=== PATIENT | female | born 1965 | race Caucasian/White ===

== ENCOUNTER 2018-05-30 13:45 | Observation (INO) | payer OTHER ==
--- NOTE | 2018-05-30 14:23 | PDOC ---
History of Present Illness <Doris Griffin - Last Filed: 05/30/18 15:43> <Alli Hidalgo - Last Filed: 05/30/18 16:10> - History of Present Illness Initial Comments: 05/30/18 14:23 53 year old woman who presents with L sided facial numbness and mild droop that started this AM. The patient stated that she has had elevated blood pressure with a systolic ranging from 160-190 for the past 2 weeks found at the dentist. She has not followed up with PCP for her blood pressure. She has never had this L sided facial numbness in the past. Her notes some silght slurring of speech. She denies any chest pain, ringing in the ears, headache, changes in vision, weakness in the face, arms or legs and nausea or vomiting. She has no other complaints at bedside. PMHX: none PSHX: none Tob: none Etoh: none Rec drugs: none Meds: none Allergies: NKDA 06/05/18 12:04 <Sudha Brooks - Last Filed: 06/05/18 12:07> - General Chief Complaint: CVA/TIA Stated Complaint: LEFT FACIAL DROOP Time Seen by Provider: 05/30/18 13:51 Past History <Doris Griffin - Last Filed: 05/30/18 15:43> <Alli Hidalgo - Last Filed: 05/30/18 16:10> - Past Medical History COPD: No - Suicide/Smoking/Psychosocial Hx Smoking History: Never smoked Hx Alcohol Use: No Drug/Substance Use Hx: No <Sudha Brooks - Last Filed: 06/05/18 12:07> - Past Medical History Allergies/Adverse Reactions: Allergies Allergy/AdvReac Type Severity Reaction Status Date / Time No Known Allergies Allergy Verified 05/30/18 13:53 Home Medications: Ambulatory Orders Acetaminophen [Tylenol .Regular Strength -] 650 mg PO Q4H PRN tablet 06/01/18 Aspirin Coated [Ecotrin -] 81 mg PO DAILY #30 tablet.ec 06/01/18 Atorvastatin Ca [Lipitor] 40 mg PO HS #30 tablet 06/01/18 Lisinopril [Prinivil] 2.5 mg PO DAILY #30 tablet 06/01/18 Review of Systems - Review of Systems Able to Perform ROS?: Yes Is the patient limited Azeri proficient: No Constitutional: No: Chills, Diaphoresis, Fever HEENTM: No: Blurred Vision, Tinnitus, Difficulty Swallowing Respiratory: No: Cough, Shortness of Breath Cardiac (ROS): No: Chest Pain, Palpitations, Chest Tightness ABD/GI: No: Constipated, Diarrhea, Nausea, Vomiting Musculoskeletal: No: Muscle Pain, Muscle Weakness Neurological: Yes: Unsteady Gait (chronic difficulty with balance). No: Headache, Numbness, Tingling, Weakness <Sudha Brooks - Last Filed: 06/05/18 12:07> *Physical Exam - Vital Signs Last Vital Signs Temp Pulse Resp BP Pulse Ox 99.0 F 76 15 155/96 100 05/30/18 13:49 05/30/18 15:35 05/30/18 15:35 05/30/18 15:35 05/30/18 15:35 <Doris Griffin - Last Filed: 05/30/18 15:43> - Vital Signs Last Vital Signs Temp Pulse Resp BP Pulse Ox 99.0 F 76 15 155/96 100 05/30/18 13:49 05/30/18 15:35 05/30/18 15:35 05/30/18 15:35 05/30/18 15:35 <Alli Hidalgo - Last Filed: 05/30/18 16:10> - Vital Signs Last Vital Signs Temp Pulse Resp BP Pulse Ox 99.0 F 84 16 197/121 100 05/30/18 13:49 05/30/18 13:49 05/30/18 13:49 05/30/18 13:49 05/30/18 13:49 - Physical Exam Comments: 06/05/18 12:01 GENERAL: Awake, alert, and fully oriented, in no acute distress HEAD: No signs of trauma, normocephalic, atraumatic EYES: PERRLA, EOMI, sclera anicteric, conjunctiva clear ENT: Auricles normal inspection, hearing grossly normal, nares patent, oropharynx clear without exudates. Moist mucosa NECK: Normal ROM, supple, no lymphadenopathy or masses LUNGS: No distress, speaks full sentences, clear to auscultation bilaterally HEART: Regular rate and rhythm, normal S1 and S2, no murmurs, rubs or gallops, peripheral pulses normal and equal bilaterally. ABDOMEN: Soft, nontender, normoactive bowel sounds. No guarding, no rebound. No masses EXTREMITIES : Normal inspection, Normal range of motion, no edema. No clubbing or cyanosis. NEUROLOGICAL: Cranial nerves II through XII grossly intact. + decreased L nasolabial fold crease, + able to raise both eyebrows with bilat forehead wrinkling, Normal speech, normal gait, no focal sensorimotor deficits SKIN: Warm, Dry, normal turgor, no rashes or lesions noted 06/05/18 12:03 <Sudha Brooks - Last Filed: 06/05/18 12:07> NIH Stroke Scale - Initial Evaluation Level of consciousness: Alert Ask patient the month and their age: Answers both correctly Ask patient to open & close eyes; make fist and let go: Obeys both correctly Best gaze (horizontal eye movement): Normal Visual field testing: No visual field loss Facial paresis (Show teeth/raise eyebrows/close eyes tight): Minor paralysis ( flattened nasolabial fold, asymmetry on smiling) (L face) Motor Function: Left Arm: Normal Motor Function: Right Arm: Normal (extends arm 90 (or 45) degrees for 10 seconds without drift Motor Function: Left Leg: Normal (extends leg 30 degrees for 5 seconds without drift) Motor Function: Right Leg: Normal (extends leg 30 degrees for 5 seconds without drift) Limb Ataxia: No ataxia (No NEW ataxia, patient has baseline slight difficulty with balance) Best language (Describe picture, name items, read sentences): No Aphasia <Sudha Brooks - Last Filed: 06/05/18 12:07> tPA Exclusion checklist 3-4.5h - Ineligibility reason(s) Reasons No tPA given: Outside of window - delayed arrival <Sudha Brooks Last Filed: 06/05/18 12:07> TIA Risk Factors - ABCD Score Age: Age < 60 Blood Pressure: SBP =/> 140 Clinical Features of TIA: Uni wk w/wo speech impair Duration: TIA duration = or > 60min Diabetes: No Total ABCD2 Score (0-7):: 5 <Sudha Brooks Last Filed: 06/05/18 12:07> Critical Care Time/MDM Note - Medical Decision Making Note: Paged Dr. Dharmesh (Neuro) for callback. 05/30/18 15:43 <Doris Griffin - Last Filed: 05/30/18 15:43> - Medical Decision Making Note: 06/05/18 12:05 53 year old woman who presents with L sided facial numbness that started this AM in setting of 2 weeks of known hypertension SBP 160-190. Patient symptoms and history are concerning for CVA vs TIA vs [place] palsy, however given physical exam most likely etiology is TIA vs CVA. Plan to evaluate with prompt imaging. CT head: unremarkable Plan to admit for f/u MRI <Sudha Brooks - Last Filed: 06/05/18 12:07> Discharge Disposition <Doris Griffin - Last Filed: 05/30/18 15:43> - Discharge Dispostion Decision to Admit order: Yes <Alli Hidalgo - Last Filed: 05/30/18 16:10> <Sudha Brooks - Last Filed: 06/05/18 12:07> - Diagnosis TIA (transient ischemic attack) - Discharge Dispostion Disposition: HOME Condition at time of disposition: Improved
[2018-05-30 15:00] LABS: URINE APPEARANCE Clear; URINE BILIRUBIN Negative (NEGATIVE); URINE COLOR Yellow; URINE GLUCOSE (UA) Negative (NEGATIVE); URINE KETONE Negative (NEGATIVE); URINE LEUK ESTERASE Negative (NEGATIVE); URINE NITRITE Negative (NEGATIVE); URINE PROTEIN Negative (NEGATIVE); URINE UROBILINOGEN 0.2 (0.2-1.0)
[2018-05-30 15:05] LABS: BASO % 0.7 % (0-2.0); EOS % 0.7 % (0-4.5); HEMATOCRIT 35.8 % (32.4-45.2); HEMOGLOBIN 11.6 GM/dl (10.7-15.3); LYMPH % 12.7 % (8-40); MCHC 32.4 g/dl (32.0-36.0); MEAN PLT VOLUME 11.2 fl (7.5-11.1); MONO % 5.3 % (3.8-10.2); NEUT % 80.6 % (42.8-82.8); PLATELET COUNT 268 K/MM3 (134-434); RBC 5.04 M/mm3 (3.60-5.2); RDW 14.9 % (11.6-15.6); WHITE BLOOD COUNT 7.8 K/mm3 (4.0-10.8)
[2018-05-30 15:21] LABS: ACTIVATED PTT 32.2 SECONDS (25.2-36.5); INR 1.06 (0.82-1.09); PROTHROMBIN TIME (PATIENT) 11.9 SEC (10.2-13.0)
[2018-05-30 15:26] LABS: ALBUMIN 4.3 g/dl (3.5-5.0); ALK PHOS 83 U/L (32-92); ANION GAP 5 (8-16); BILIRUBIN,TOTAL 0.7 mg/dl (0.2-1.0); BLOOD UREA NITROGEN 13 mg/dl (7-18); CALCIUM 9.3 mg/dl (8.4-10.2); CHLORIDE 102 mmol/L (98-107); CHOLESTEROL 180 mg/dl; CO2 29 mmol/L (22-28); CREATININE 0.8 mg/dl (0.6-1.3); GLUCOSE,RANDOM 90 mg/dl (74-106); HDL CHOLESTEROL 62 mg/dl (29-89); POTASSIUM 3.9 mmol/L (3.5-5.1); SGOT/AST 20 U/L (10-42); SGPT/ALT 14 U/L (10-40); SODIUM 136 mmol/L (136-145); TOT PROT 7.1 g/dl (6.4-8.3); TRIGLYCERIDES 124 mg/dl (35-160)
[2018-05-30 15:34] LABS: ADD RBC MORPHOLOGY YES
--- NOTE | 2018-05-30 15:48 | PDOC ---
Attending Attestation - Resident Resident Name: CeciliaSudha - ED Attending Attestation I have performed the following: I have examined & evaluated the patient, The case was reviewed & discussed with the resident, I agree w/resident's findings & plan, Exceptions are as noted - HPI HPI: 05/30/18 15:45 "The patient is a 53 year old female, who denies any significant past medical history, who presents to the emergency department with left facial numbness and droop since 4 am this morning. She also notes slight headache upon awakening but denies any current pain. She states that 1 month ago she was supposed to get a tooth extracted but was unable to because her blood pressure was too high. She has been monitoring her blood pressure since and notes that its around 160-180 systolic /110-180 diastolic at baseline. Pt states that she woke up around 9am and noticed her facial droop shortly after. Her reports that she was slurring her speech at this time as well, though this has resolved. Pt denies any weakness/numbness in any extremity but reports difficulty balancing earlier today. At time of evaluation, pt reports that all of her symptoms have resolved. She denies recent fevers, chills, or dizziness. She denies recent nausea, vomit , diarrhea or constipation. She denies recent dysuria, frequency, urgency or hematuria. She denies recent chest pain or shortness of breath. Allergies: NKA Past surgical history: None reported. " - Physicial Exam PE: 05/30/18 15:46 "GENERAL: Awake, alert, and fully oriented, in no acute distress. HEAD: No signs of trauma EYES: PERRLA, EOMI, sclera anicteric, conjunctiva clear ENT: Auricles normal inspection, hearing grossly normal, nares patent, oropharynx clear without exudates. Moist mucosa NECK: Nontender, no stepoffs, Normal ROM, supple, no lymphadenopathy, JVD, or masses LUNGS: Breath sounds equal, clear to auscultation bilaterally. No wheezes, and no crackles HEART: Regular rate and rhythm, normal S1 and S2, no murmurs, rubs or gallops ABDOMEN: Soft, nontender, normoactive bowel sounds. No guarding, no rebound. No masses EXTREMITIES: Normal range of motion, no edema. No clubbing or cyanosis. No cords, erythema, or tenderness NEUROLOGICAL: Cranial nerves II through XII intact. 5/5 strength and sensation in all extremities, Normal speech, normal gait, normal cerebellar function SKIN: Warm, Dry, normal turgor, no rashes or lesions noted. " - Critical Care Time Total Critical Care Time: 45 Critical Care Statement: The care of this patient involved high complexity decision making to prevent further life threatening deterioration of the patient 's condition and/or to evaluate & treat vital organ system(s) failure or risk of failure. - Medical Decision Making 05/30/18 15:47 53 F with transient L facial droop, L facial numbness, slurred speech, and difficulty balancing. Concerning for TIA. Pt now has NIHSS 0. Vitals in triage notable for hypertension. - Labs - CT head - Neuro consult 05/30/18 15:59 CT head normal Labs unremarkable Spoke with Dr. Barroso, who recommends admission for MRI. NIH Stroke Scale - Last Known Well Date/Time & Onset Date Last Known Well: 05/29/18 Time Last Known Well: 22:00 - Initial Evaluation Level of consciousness: Alert Ask patient the month and their age: Answers both correctly Ask patient to open & close eyes; make fist and let go: Obeys both correctly Best gaze (horizontal eye movement): Normal Visual field testing: No visual field loss Facial paresis (Show teeth/raise eyebrows/close eyes tight): Normal symmetrical movement Motor Function: Left Arm: Normal Motor Function: Right Arm: Normal (extends arm 90 (or 45) degrees for 10 seconds without drift Motor Function: Left Leg: Normal (extends leg 30 degrees for 5 seconds without drift) Motor Function: Right Leg: Normal (extends leg 30 degrees for 5 seconds without drift) Limb Ataxia: No ataxia Sensory(Use pinprick test arms,legs,trunk,face/side to side): Normal Best language (Describe picture, name items, read sentences): No Aphasia Dysarthria (read several words): Normal articulation Extinction and Inattention: No abnormality - Total Score NIH Stroke Scale Score: 0
[2018-05-30 15:56] LABS: OVALOCYTE 1+; TEAR DROP CELLS OCCASIONAL
[2018-05-30] MEDS ORDERED: ATORVASTATIN CA 10 MG TABLET (FP) PO ONE (16:30)
[2018-05-30] MEDS: ASPIRIN COATED 81 MG TABLET.EC PO SCH (17:15)
[2018-05-30] MEDS ORDERED: ASPIRIN 81 MG CHEWABLE TABLETS ONE (17:16)
[2018-05-30] MEDS ORDERED: ATORVASTATIN CA 20 MG TABLET (FP) ONE (17:16)
[2018-05-30 20:15] VITALS: BMI 17.2
[2018-05-30] MEDS ORDERED: ATORVASTATIN CA 40 MG TABLET (FP) PO SCH (22:00)
[2018-05-31] MEDS: SODIUM CHLORIDE 1,000 ML IV SCH ×2 (00:09→14:45)
[2018-05-31] MEDS ORDERED: LISINOPRIL 5 MG TABLET (FP) PO ONE ×2 (00:28→13:17)
--- NOTE | 2018-05-31 00:30 | HP ---
CHIEF COMPLAINT: headache, facial numbness, slurred speech PCP: none HISTORY OF PRESENT ILLNESS: This is a 53 year old female with PMH of migraines who presented to the ED with a headache upon awakening, slurred speech and left facial numbness. Facial numbness and headache have resolved. Pt reports she has been having intermittent "different" speech for months. She believes it may be related to her BP. Pt reports that she was never diagnosed with HTN but a month ago her tooth extraction was cancelled due to her BP. She did not f/u with a doctor because she was going away on vacation. ER course was notable for: (1) BP elevated 197/121 upon arrival (2) CT head unremarkable Recent Travel: [place] PAST MEDICAL HISTORY: migraines PAST SURGICAL HISTORY: none Social History: Smoking: pt denies Alcohol: pt denies Drugs: pt denies Family History: mother alive with BP father age 58, emphysema brother age 26, unknown COD brother alive and well 3 children alive and well Allergies No Known Allergies Allergy (Verified 05/30/18 13:53) HOME MEDICATIONS: 3 Medication Instructions Recorded NK [No Known Home Medication] 05/30/18 REVIEW OF SYSTEMS CONSTITUTIONAL: Absent: fever, chills, diaphoresis, generalized weakness, malaise, loss of appetite, weight change HEENT: Absent: rhinorrhea, nasal congestion, throat pain, throat swelling, difficulty swallowing, mouth swelling, ear pain, eye pain, visual changes CARDIOVASCULAR: Absent: chest pain, syncope, palpitations, irregular heart rate, lightheadedness , peripheral edema RESPIRATORY: Absent: cough, shortness of breath, dyspnea with exertion, orthopnea, wheezing, stridor, hemoptysis GASTROINTESTINAL: Absent: abdominal pain, abdominal distension, nausea, vomiting, diarrhea, constipation, melena, hematochezia GENITOURINARY: Absent: dysuria, frequency, urgency, hesitancy, hematuria, flank pain, genital pain MUSCULOSKELETAL: Absent: myalgia, arthralgia, joint swelling, back pain, neck pain SKIN: Absent: rash, itching, pallor HEMATOLOGIC/IMMUNOLOGIC: Absent: easy bleeding, easy bruising, lymphadenopathy, frequent infections ENDOCRINE: Absent: unexplained weight gain, unexplained weight loss, heat intolerance, cold intolerance NEUROLOGIC: Present: headache, focal weakness or paresthesias Absent: dizziness, unsteady gait, seizure, mental status changes, bladder or bowel incontinence PSYCHIATRIC: Absent: anxiety, depression, suicidal or homicidal ideation, hallucinations. PHYSICAL EXAMINATION Vital Signs - 24 hr 3 05/30/18 05/30/18 05/30/18 13:49 14:45 15:20 Temperature 99.0 F Pulse Rate 84 Pulse Rate [ 70 71 Apical] Respiratory 16 15 15 Rate Blood Pressure 197/121 Blood Pressure 172/102 148/97 [Right Arm] O2 Sat by Pulse 100 100 100 Oximetry (%) 05/30/18 05/30/18 05/30/18 15:35 16:11 16:15 Temperature 98.8 F Pulse Rate 72 Pulse Rate [ 76 76 Apical] Respiratory 15 20 16 Rate Blood Pressure 185/91 Blood Pressure 155/96 135/90 [Right Arm] O2 Sat by Pulse 100 100 100 Oximetry (%) 05/30/18 05/30/18 05/30/18 19:35 22:11 22:18 Temperature 98.6 F Pulse Rate 79 Pulse Rate [ Apical] Respiratory 16 19 Rate Blood Pressure 161/88 Blood Pressure [Right Arm] O2 Sat by Pulse 100 98 Oximetry (%) GENERAL: Awake, alert, and fully oriented, in no acute distress. HEAD: Normal with no signs of trauma. EYES: Pupils equal, round and reactive to light, extraocular movements intact, sclera anicteric, conjunctiva clear. No lid lag. EARS, NOSE, THROAT: Ears normal, nares patent, oropharynx clear without exudates. Moist mucous membranes. NECK: Normal range of motion, supple without lymphadenopathy, JVD, or masses. LUNGS: Breath sounds equal, clear to auscultation bilaterally. No wheezes, and no crackles. No accessory muscle use. HEART: Regular rate and rhythm, normal S1 and S2 without murmur, rub or gallop. ABDOMEN: Soft, nontender, not distended, normoactive bowel sounds, no guarding, no rebound, no masses. No hepatomegaly or splenomegaly. MUSCULOSKELETAL: Normal range of motion at all joints. No bony deformities or tenderness. No CVA tenderness. UPPER EXTREMITIES: 2+ pulses, warm, well-perfused. No cyanosis. No clubbing. No peripheral edema. LOWER EXTREMITIES: 2+ pulses, warm, well-perfused. No calf tenderness. No peripheral edema. NEUROLOGICAL: Cranial nerves II-XII intact. Normal speech. Normal gait. minor dysarthria noted, no other symptoms, no ataxia PSYCHIATRIC: Cooperative. Good eye contact. Appropriate mood and affect. SKIN: Warm, dry, normal turgor, no rashes or lesions noted, normal capillary refill. Laboratory Results - last 24 hr 3 05/30/18 05/30/18 05/30/18 14:20 14:20 14:20 WBC 7.8 RBC 5.04 Hgb 11.6 Hct 35.8 MCV 71.0 L MCH 23.0 L MCHC 32.4 RDW 14.9 Plt Count 268 MPV 11.2 H Absolute Neuts (auto) 6.2 Neutrophils % 80.6 Lymphocytes % 12.7 Monocytes % 5.3 Eosinophils % 0.7 Basophils % 0.7 Hypochromia 1+ Microcytosis 1+ Tear Drop Cells Occasional Ovalocytes 1+ PT with INR 11.9 INR 1.06 PTT (Actin FS) 32.2 Sodium 136 Potassium 3.9 Chloride 102 Carbon Dioxide 29 H Anion Gap 5 L BUN 13 Creatinine 0.8 Creat Clearance w eGFR > 60 Random Glucose 90 Calcium 9.3 Total Bilirubin 0.7 AST 20 ALT 14 Alkaline Phosphatase 83 Creatine Kinase 83 Troponin I < 0.03 Total Protein 7.1 Albumin 4.3 Triglycerides 124 Cholesterol 180 HDL Cholesterol 62 Urine Color Urine Appearance Urine pH Ur Specific [place] Urine Protein Urine Glucose (UA) Urine Ketones Urine Blood Urine Nitrite Urine Bilirubin Urine Urobilinogen Ur Leukocyte Esterase Blood Type A POSITIVE Antibody Screen Negative 3 Urine Color Yellow 05/30/18 14:40 Urine Appearance Clear 05/30/18 14:40 Urine pH 6.0 (4.5-8) 05/30/18 14:40 Ur Specific [place] 1.015 (1.005-1.025) 05/30/18 14:40 Urine Protein Negative (NEGATIVE) 05/30/18 14:40 Urine Glucose (UA) Negative (NEGATIVE) 05/30/18 14:40 Urine Ketones Negative (NEGATIVE) 05/30/18 14:40 Urine Blood Negative (NEGATIVE) 05/30/18 14:40 Urine Nitrite Negative (NEGATIVE) 05/30/18 14:40 Urine Bilirubin Negative (NEGATIVE) 05/30/18 14:40 Urine Urobilinogen 0.2 05/30/18 14:40 Ur Leukocyte Esterase Negative (NEGATIVE) 05/30/18 14:40 ECG normal sinus rhythm vent rate 76, QTC 432 possible left atrial enlargement, no acute ST/T wave changes Radiology Reports CT head IMPRESSION: Normal CT scan of the head with no evidence of acute intracranial pathology. Reported By: Jose Alberto Kirby MD 05/30/18 3872 ASSESSMENT/PLAN: 53yF with PMH migraines presented to the ED with left facial weakness, numbness , headache, slurred speech since awakening. Hypertensive urgency - BP initially came down on without medications, now creeping back up - will initiate antiHTN meds, start lisinopril 2.5mg now, titrate up as needed TIA - MRI ordered - Neurology consult appreciated - Lipid panel ordered - cardiac monitoring DVT PPX - heparin deferred, anticipated LOS less than 48h FEN - tolerating po fluids - BMP in am - low sodium diet as tolerated Dispo: pt requires further observation Visit type - Emergency Visit Emergency Visit: Yes ED Registration Date: 05/30/18 Care time: The patient presented to the Emergency Department on the above date and was hospitalized for further evaluation of their emergent condition. - New Patient This patient is new to me today: Yes Date on this admission: 05/30/18 - Critical Care Critical Care patient: No Hospitalist Screening - Colonoscopy Questionnaire Colonoscopy Questionnaire: Colonoscopy Questionnaire - Patient: 50 - 75 years old and never had a screening colonoscopy: Yes History of colon or rectal polyps, or CA: No History of IBD, Crohn's disease or UC: No History of abdominal radiation therapy as a child: No - Relative: 1 with colon or rectal CA, or polyps at age 60 or younger: No Colon or rectal CA diagnosed at age 45 or younger: No Multiple relatives with colon or rectal CA: No - Outcome: Screening Result: Positive Screen
--- NOTE | 2018-05-31 07:58 | PN ---
Physical Exam: SUBJECTIVE: Patient seen and examined, reports headache, left side of head denies any blurred vision nausea or vomiting OBJECTIVE: patient is a 53-year-old female with a past medical history of migraines. patient was admitted from the emergency department to telemetry observation for hypertensive urgency and rule out TIA Vital Signs Period Temp Pulse Resp BP Sys/[place] Pulse Ox Last 24 Hr 98.0 F-99.0 F 64-84 15-20 135-197/83-121 98-100 GENERAL: The patient is awake, alert, and fully oriented, in no acute distress. HEAD: Normal with no signs of trauma. EYES: PERRL, extraocular movements intact, sclera anicteric, conjunctiva clear. No ptosis. ENT: Ears normal, nares patent, oropharynx clear without exudates, moist mucous membranes. NECK: Trachea midline, full range of motion, supple. LUNGS: Breath sounds equal, clear to auscultation bilaterally, no wheezes, no crackles, no accessory muscle use. HEART: Regular rate and rhythm, S1, S2 without murmur, rub or gallop. ABDOMEN: Soft, nontender, nondistended, normoactive bowel sounds, no guarding, no rebound, no hepatosplenomegaly, no masses. EXTREMITIES: 2+ pulses, warm, well-perfused, no edema. NEUROLOGICAL: Cranial nerves II through XII grossly intact. dysarthria, ataxic gait noted observed. PSYCH: Normal mood, normal affect. SKIN: Warm, dry, normal turgor, no rashes or lesions noted Laboratory Results - last 24 hr 05/30/18 05/30/18 05/30/18 14:20 14:20 14:20 WBC 7.8 RBC 5.04 Hgb 11.6 Hct 35.8 MCV 71.0 L MCH 23.0 L MCHC 32.4 RDW 14.9 Plt Count 268 MPV 11.2 H Absolute Neuts (auto) 6.2 Neutrophils % 80.6 Lymphocytes % 12.7 Monocytes % 5.3 Eosinophils % 0.7 Basophils % 0.7 Hypochromia 1+ Microcytosis 1+ Tear Drop Cells Occasional Ovalocytes 1+ PT with INR 11.9 INR 1.06 PTT (Actin FS) 32.2 Sodium 136 Potassium 3.9 Chloride 102 Carbon Dioxide 29 H Anion Gap 5 L BUN 13 Creatinine 0.8 Creat Clearance w eGFR > 60 Random Glucose 90 Calcium 9.3 Total Bilirubin 0.7 AST 20 ALT 14 Alkaline Phosphatase 83 Creatine Kinase 83 Troponin I Total Protein 7.1 Albumin 4.3 Triglycerides 124 Cholesterol 180 HDL Cholesterol 62 Urine Color Urine Appearance Urine pH Ur Specific [place] Urine Protein Urine Glucose (UA) Urine Ketones Urine Blood Urine Nitrite Urine Bilirubin Urine Urobilinogen Ur Leukocyte Esterase Blood Type Antibody Screen 05/30/18 05/30/18 05/30/18 14:20 14:20 14:20 WBC RBC Hgb Hct MCV MCH MCHC RDW Plt Count MPV Absolute Neuts (auto) Neutrophils % Lymphocytes % Monocytes % Eosinophils % Basophils % Hypochromia Microcytosis Tear Drop Cells Ovalocytes PT with INR INR PTT (Actin FS) Sodium Potassium Chloride Carbon Dioxide Anion Gap BUN Creatinine Creat Clearance w eGFR Random Glucose Calcium Total Bilirubin AST ALT Alkaline Phosphatase Creatine Kinase Troponin I < 0.03 Total Protein Albumin Triglycerides Cholesterol HDL Cholesterol Urine Color Urine Appearance Urine pH Ur Specific [place] Urine Protein Urine Glucose (UA) Urine Ketones Urine Blood Urine Nitrite Urine Bilirubin Urine Urobilinogen Ur Leukocyte Esterase Blood Type A POSITIVE A POSITIVE Antibody Screen Negative 05/30/18 14:40 WBC RBC Hgb Hct MCV MCH MCHC RDW Plt Count MPV Absolute Neuts (auto) Neutrophils % Lymphocytes % Monocytes % Eosinophils % Basophils % Hypochromia Microcytosis Tear Drop Cells Ovalocytes PT with INR INR PTT (Actin FS) Sodium Potassium Chloride Carbon Dioxide Anion Gap BUN Creatinine Creat Clearance w eGFR Random Glucose Calcium Total Bilirubin AST ALT Alkaline Phosphatase Creatine Kinase Troponin I Total Protein Albumin Triglycerides Cholesterol HDL Cholesterol Urine Color Yellow Urine Appearance Clear Urine pH 6.0 Ur Specific [place] 1.015 Urine Protein Negative Urine Glucose (UA) Negative Urine Ketones Negative Urine Blood Negative Urine Nitrite Negative Urine Bilirubin Negative Urine Urobilinogen 0.2 Ur Leukocyte Esterase Negative Blood Type Antibody Screen Active Medications Generic Name Dose Route Start Last Admin Trade Name Freq PRN Reason Stop Dose Admin Aspirin 81 mg 05/30/18 16:30 05/30/18 17:15 Ecotrin - PO 81 mg DAILY CEDRIC Administration Sodium Chloride 1,000 mls @ 42 mls/hr 05/30/18 14:15 05/31/18 00:09 Normal Saline - IV Not Given ASDIR CEDRIC ECG normal sinus rhythm vent rate 76, QTC 432 possible left atrial enlargement, no acute ST/T wave changes Radiology Reports CT head IMPRESSION: Normal CT scan of the head with no evidence of acute intracranial pathology. Reported By: Jose Alberto Kirby MD 05/30/18 8208 ASSESSMENT/PLAN: 1) cardiovascular Hypertensive urgency - Continue lisinopril 2.5 mg daily, strict monitoring of blood pressure, every 4 hours - pending echocardiogram 2) Neuro R/o TIA - pending MRI/MRA of head and C-spine - Continue aspirin and Lipitor daily - Neurology Dr. [place] consulted and following DVT PPX - heparin deferred, anticipated LOS less than 48h FEN - tolerating po fluids - BMP in am - low sodium diet as tolerated Dispo: pt requires further observation ASSESSMENT/PLAN: Visit type - Emergency Visit Emergency Visit: Yes ED Registration Date: 05/30/18 Care time: The patient presented to the Emergency Department on the above date and was hospitalized for further evaluation of their emergent condition. - New Patient This patient is new to me today: No - Critical Care Critical Care patient: No - Discharge Referral Referred to [facility] No
[2018-05-31 08:36] LABS: BASO % 1.3 % (0-2.0); EOS % 2.5 % (0-4.5); HEMATOCRIT 34.2 % (32.4-45.2); HEMOGLOBIN 11.1 GM/dl (10.7-15.3); LYMPH % 22.7 % (8-40); MCH 23.2 pg (25.7-33.7); MCHC 32.3 g/dl (32.0-36.0); MEAN CELL VOLUME 71.7 fl (80-96); MEAN PLT VOLUME 10.9 fl (7.5-11.1); MONO % 7.3 % (3.8-10.2); NEUT % 66.2 % (42.8-82.8); PLATELET COUNT 216 K/MM3 (134-434); RBC 4.76 M/mm3 (3.60-5.2); RDW 15.2 % (11.6-15.6); WHITE BLOOD COUNT 6.5 K/mm3 (4.0-10.8)
[2018-05-31 08:44] LABS: ANION GAP 6 (8-16); BLOOD UREA NITROGEN 11 mg/dl (7-18); CALCIUM 9.3 mg/dl (8.4-10.2); CHLORIDE 103 mmol/L (98-107); CHOLESTEROL 157 mg/dl; CO2 30 mmol/L (22-28); CREATININE 0.8 mg/dl (0.6-1.3); GLUCOSE,RANDOM 98 mg/dl (74-106); HDL CHOLESTEROL 60 mg/dl (29-89); PHOSPHOROUS 4.3 mg/dl (2.5-4.6); POTASSIUM 4.2 mmol/L (3.5-5.1); SODIUM 139 mmol/L (136-145)
[2018-05-31 08:46] LABS: TRIGLYCERIDES 23 mg/dl (35-160)
--- NOTE | 2018-05-31 08:46 | CON.NEURO ---
Consult - History of Present Illness History of Present Illness: 53 year old female with PMH of migraines who presented to the ED with a headache upon awakening, slurred speech and left facial numbness. Facial numbness and headache have resolved. Pt reports she has been having intermittent "different" speech for months. She believes it may be related to her BP. Pt reports that she was never diagnosed with HTN but a month ago her tooth extraction was cancelled due to her BP. She did not f/u with a doctor because she was going away on vacation.CT HD (-). She reports she has had imbalance and slurred speech x one yr . She has not followed with doctors bc she reports she has no insurance. - Past Medical History ...LMP: 05/16/18 ...: No - Alcohol/Substance Use Hx Alcohol Use: No - Smoking History Smoking history: Never smoked Home Medications - Allergies Allergies/Adverse Reactions: Allergies Allergy/AdvReac Type Severity Reaction Status Date / Time No Known Allergies Allergy Verified 05/30/18 13:53 - Home Medications Home Medications: Ambulatory Orders NK [No Known Home Medication] 05/30/18 Physical Exam-Neuro Vital Signs: Vital Signs Temperature 98.0 F 05/31/18 06:00 Pulse Rate 64 05/31/18 06:00 Respiratory Rate 19 05/31/18 06:00 Blood Pressure 144/83 05/31/18 06:00 O2 Sat by Pulse Oximetry (%) 98 05/31/18 06:57 Labs: CBC, BMP 05/31/18 08:00 INR, PTT INR 1.06 (0.82-1.09) 05/30/18 14:20 - Neuro Exam Level Of Consciousness: Yes: Alert, Oriented to Person (dysarthria, left facial , motor UE and LE 5/5, inc tone in LE, brisk reflexes, unable to tandem , + ROmberg ) Problem List - Problems (1) Headache Code(s): R51 - HEADACHE (2) Gait abnormality Code(s): R26.9 - UNSPECIFIED ABNORMALITIES OF GAIT AND MOBILITY Assessment/Plan 53 year old female with PMH of migraines who presented to the ED with a headache upon awakening, slurred speech and left facial numbness. Facial numbness and headache have resolved. Pt reports she has been having intermittent "different" speech for months. She believes it may be related to her BP. Pt reports that she was never diagnosed with HTN but a month ago her tooth extraction was cancelled due to her BP. HD CT (-) on exam she has dysarthria, LE inc tone and + romberg suggest her DONG was trioggered by elevated BP --BP better now. Dysarthria /inc tone in LE likely a separate issue -- ? old stroke vs demyelinating --needs MRI BRAIN and C spine SW- for insurance options. DR HAMPTON
[2018-05-31] MEDS: ASPIRIN COATED 81 MG TABLET.EC PO SCH (09:59)
[2018-05-31] MEDS ORDERED: ACETAMINOPHEN 325 MG TABLET (FP) PO PRN (13:15)
--- NOTE | 2018-05-31 13:32 | EKG ---
Test Reason : Blood Pressure : / mmHG Vent. Rate : 076 BPM Atrial Rate : 076 BPM P-R Int : 142 ms QRS Dur : 074 ms QT Int : 384 ms P-R-T Axes : 072 056 060 degrees QTc Int : 432 ms NORMAL SINUS RHYTHM POSSIBLE LEFT ATRIAL ENLARGEMENT BORDERLINE ECG NO PREVIOUS ECGS AVAILABLE Confirmed by JEANMARIE CAMARENA MD ([id number]) on 05/31/2018 1:32:09 PM Referred By: MARTI LAMBERT Confirmed By:JEANMARIE CAMARENA MD
--- NOTE | 2018-05-31 15:08 | CONSULT ---
Admitting History and Physical - Primary Care Physician PCP: Katya Pisano - Admission History of Present Illness: 53yF with PMH migraines presented to the ED with left facial weakness, numbness , headache, slurred speech. Per Neurology: dysarthria, left facial, motor UE and LE 5/5, inc tone in LE, brisk reflexes, unable to tandem , +ROmberg.... suggest her DONG was triggered by elevated BP --BP better now. Dysarthria /inc tone in LE likely a separate issue -- ? old stroke vs demyelinating --needs MRI BRAIN and C spine Selected Entries 05/30/18 22:11 Diet Tolerated Well Supper 100% Laboratory Tests 05/31/18 08:00 WBC 6.5 On reg diet/thin liquid. This is my first consult with this pt. History Source: Patient, Medical Record Limitations to Obtaining History: No Limitations - Past Medical History ...LMP: 05/16/18 ...: No - Smoking History Smoking history: Never smoked - Alcohol/Substance Use Hx Alcohol Use: No History - Admission Reason For Visit: TRANSIENT CEREBRAL ISCHEMIC ATTACK, UNSPECIFIED - Diagnostics MRI: Report Reviewed (Small vessel infarctions in white matter bilaterally in cerebral hemispheres. Cerebellopontine angles unremarkable.) - General Mental Status: Alert and Oriented, Awake and Alert, Able to Follow Commands Attention: Intact Ability to Follow Directions: Excellent Head/Neck Control: WFL - Hearing Hearing: Normal Hearing Aide: No With Patient: No Speech Evaluation - Communication Primary Language: BARBADIAN Communication: Yes: Dysarthria Oral Expression Ability: Yes: Mild Impairment - Speech Production Dysarthria: Yes: Ataxic Able to Make Needs Known: Yes: WNL Intelligibility: Yes: Mildly Impaired - Speech Characteristics Voice Loudness: Normal Voice Phonatory-based Quality: Yes: Normal Speech Pattern: Impaired Speech Clarity: < 100% Nasal Resonance: Normal Articulation: Yes: Precise Voice, Other Observations: Yes: Disordered Intonation - Language/Auditory Comprehension Follows: Yes: 2 Stage Simple Commands - Language/Verbal Expression Able to Respond to Simple Queries: Yes: WNL Able to Communicate Wants and Needs: Yes: WNL Functional Communication Status: Yes: WNL - Swallow Evaluation/Bedside Assessment Current Nutritional Intake: Regular, Thin Liquids Oral Secretions: Yes: WFL Dentition: Yes: Adequate Facial Symmetry at Rest: Symmetrical Facial Symmetry on Retraction: Symmetrical Facial Movement: Controlled Jaw Position: Closed at Rest Lingual Movement: Deviates Left Lingual Speed of Movement: Reduced Lingual Movement Strgth Against Opposition: Reduced Lingual Movement Characteristics: Normal Velopharyngeal Movement: Normal Laryngeal Elevation: WFL Laryngeal Movement: Able to Palpate Chewing: WFL Oral Prep Time: WFL A-P Transit: WFL Pocketing: None Timing of Swallow: WFL Coughing/Throat Clear: No Change in Voice: No Recommendations - Speech Evaluation, Impression/Plan Impression: 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 Reduced diadochokinetic rates. Dysprosody. Swallowing intact.Cognition grossly functional. Higher intellectual functioning deficits not evaluated fully; may be impaired. .eg memory, insight. MRI noted. - Disposition [facility] to[facility] (PT/OT/Speech as out pt?) - Dysphagia Impressions/Plan Swallowing Skills: WFL Dysphagia Impressions: No Impairment *Silent aspiration: cannot be R/O at bedside Dysphagia Treatment Plan: OOB for meals, OOB for 1 h. after meals - Recommendations Diet Consistency: Regular Medication Administration: Whole with water Liquids: Thin Liquids
[2018-05-31] MEDS ORDERED: ATORVASTATIN CA 10 MG TABLET (FP) PO SCH (22:00)
--- NOTE | 2018-06-01 08:37 | PN ---
Progress Note (short form) - Note Progress Note: 53 year old female with PMH of migraines who presented to the ED with a headache upon awakening, slurred speech and left facial numbness. Facial numbness and headache have resolved. Pt reports she has been having intermittent "different" speech for months. She believes it may be related to her BP. Pt reports that she was never diagnosed with HTN but a month ago her tooth extraction was cancelled due to her BP. She did not f/u with a doctor because she was going away on vacation.CT HD (-). She reports she has had imbalance and slurred speech x one yr . She has not followed with doctors bc she reports she has no insurance. FU : MRI BRAIN small vessel disease, no acute findings, MRI C spine, no demyelinating plaques ECHO P - Past Medical History ...LMP: 05/16/18 ...: No - Alcohol/Substance Use Hx Alcohol Use: No - Smoking History Smoking history: Never smoked Home Medications - Allergies Allergies/Adverse Reactions: Allergies Allergy/AdvReac Type Severity Reaction Status Date / Time No Known Allergies Allergy Verified 05/30/18 13:53 - Home Medications Home Medications: Ambulatory Orders NK [No Known Home Medication] 05/30/18 Physical Exam-Neuro Vital Signs: Vital Signs Temperature 98.3 F 06/01/18 06:00 Pulse Rate 64 06/01/18 06:00 Respiratory Rate 18 06/01/18 06:00 Blood Pressure 134/67 06/01/18 06:00 O2 Sat by Pulse Oximetry (%) 100 06/01/18 06:00 Labs: CBCD WBC 6.5 K/mm3 (4.0-10.8) 05/31/18 08:00 RBC 4.76 M/mm3 (3.60-5.2) 05/31/18 08:00 Hgb 11.1 GM/dl (10.7-15.3) 05/31/18 08:00 Hct 34.2 % (32.4-45.2) 05/31/18 08:00 MCV 71.7 fl (80-96) L 05/31/18 08:00 MCHC 32.3 g/dl (32.0-36.0) 05/31/18 08:00 RDW 15.2 % (11.6-15.6) 05/31/18 08:00 Plt Count 216 K/MM3 (134-434) 05/31/18 08:00 MPV 10.9 fl (7.5-11.1) 05/31/18 08:00 CMP Sodium 139 mmol/L (136-145) 05/31/18 08:00 Potassium 4.2 mmol/L (3.5-5.1) 05/31/18 08:00 Chloride 103 mmol/L (98-107) 05/31/18 08:00 Carbon Dioxide 30 mmol/L (22-28) H 05/31/18 08:00 Anion Gap 6 (8-16) L 05/31/18 08:00 BUN 11 mg/dl (7-18) 05/31/18 08:00 Creatinine 0.8 mg/dl (0.6-1.3) 05/31/18 08:00 Creat Clearance w eGFR > 60 (>60) 05/31/18 08:00 Calcium 9.3 mg/dl (8.4-10.2) 05/31/18 08:00 Total Bilirubin 0.7 mg/dl (0.2-1.0) 05/30/18 14:20 AST 20 U/L (10-42) 05/30/18 14:20 ALT 14 U/L (10-40) 05/30/18 14:20 Alkaline Phosphatase 83 U/L (32-92) 05/30/18 14:20 Total Protein 7.1 g/dl (6.4-8.3) 05/30/18 14:20 Albumin 4.3 g/dl (3.5-5.0) 05/30/18 14:20 - Neuro Exam Level Of Consciousness: Yes: Alert, Oriented to Person (dysarthria, left facial , motor UE and LE 5/5, inc tone in LE, brisk reflexes, unable to tandem , + ROmberg ) Problem List - Problems (1) Headache Code(s): R51 - HEADACHE (2) Gait abnormality Code(s): R26.9 - UNSPECIFIED ABNORMALITIES OF GAIT AND MOBILITY Assessment/Plan 53 year old female with PMH of migraines who presented to the ED with a headache upon awakening, slurred speech and left facial numbness. Facial numbness and headache have resolved. Pt reports she has been having intermittent "different" speech for months. She believes it may be related to her BP. Pt reports that she was never diagnosed with HTN but a month ago her tooth extraction was cancelled due to her BP. HD CT (-) on exam she has dysarthria, LE inc tone and + romberg suggest her DONG was triggered by elevated BP --BP better now. Dysarthria /inc tone in LE likely a separate issue -- no clear evidence of MS/ demyelination although sx will require [facility] as an outpt- primary lateral sclerosis vs bulbar plasy in differential, cleared for DC and outpt FU DR AHMPTON [id number] Problem List - Problems (1) Headache Code(s): R51 - HEADACHE (2) Gait abnormality Code(s): R26.9 - UNSPECIFIED ABNORMALITIES OF GAIT AND MOBILITY
[2018-06-01] MEDS ORDERED: LISINOPRIL 5 MG TABLET (FP) PO SCH (10:00)
[2018-06-01] MEDS: ASPIRIN COATED 81 MG TABLET.EC PO SCH (10:06)
--- NOTE | 2018-06-01 10:08 | PN ---
Progress Note, GEOSPATIAL SYSTEMS INTEGRATOR - Note Progress Note: Per neurology;Dysarthria /inc tone in LE likely a separate issue -- no clear evidence of MS/demyelination although sx will require WO[facility]S as an outpt- primary lateral sclerosis vs bulbar plasy in differential Ataxic Dysarthria unchanged.Euphoric. Pt will benefit from speech tx/PT/OT. Pt reports that she needs to get medical insurance first. Tolerating diet without difficulty. Monitor tolerancew with potential for deterioration.
--- NOTE | 2018-06-01 11:50 | DS ---
Physical Exam: SUBJECTIVE: Patient seen and examined, reports speech has improved, denies any headache or blurred vision OBJECTIVE:This is a 53 year old female with PMH of migraines who presented to the ED with a headache upon awakening, slurred speech and left facial numbness. Facial numbness and headache have resolved. Pt reports she has been having intermittent "different" speech for months. She believes it may be related to her BP. Pt reports that she was never diagnosed with HTN but a month ago her tooth extraction was cancelled due to her BP. She did not f/u with a doctor because she was going away on vacation. ER course was notable for: (1) BP elevated 197/121 upon arrival (2) CT head unremarkable Vital Signs Period Temp Pulse Resp BP Sys/Londono Pulse Ox Last 24 Hr 98 F-98.3 F 58-78 16-20 121-145/56-90 99-100 PHYSICAL EXAM GENERAL: The patient is awake, alert, and fully oriented, in no acute distress. HEAD: Normal with no signs of trauma. EYES: PERRL, extraocular movements intact, sclera anicteric, conjunctiva clear. No ptosis. ENT: Ears normal, nares patent, oropharynx clear without exudates, moist mucous membranes. NECK: Trachea midline, full range of motion, supple. LUNGS: Breath sounds equal, clear to auscultation bilaterally, no wheezes, no crackles, no accessory muscle use. HEART: Regular rate and rhythm, S1, S2 without murmur, rub or gallop. ABDOMEN: Soft, nontender, nondistended, normoactive bowel sounds, no guarding, no rebound, no hepatosplenomegaly, no masses. EXTREMITIES: 2+ pulses, warm, well-perfused, no edema. NEUROLOGICAL: Cranial nerves II through XII grossly intact. dysarthria (improved ), ataxic gait noted observed. PSYCH: Normal mood, normal affect. SKIN: Warm, dry, normal turgor, no rashes or lesions noted LABS CBC WBC 6.5 K/mm3 (4.0-10.8) 05/31/18 08:00 RBC 4.76 M/mm3 (3.60-5.2) 05/31/18 08:00 Hgb 11.1 GM/dl (10.7-15.3) 05/31/18 08:00 Hct 34.2 % (32.4-45.2) 05/31/18 08:00 MCV 71.7 fl (80-96) L 05/31/18 08:00 MCH 23.2 pg (25.7-33.7) L 05/31/18 08:00 MCHC 32.3 g/dl (32.0-36.0) 05/31/18 08:00 RDW 15.2 % (11.6-15.6) 05/31/18 08:00 Plt Count 216 K/MM3 (134-434) 05/31/18 08:00 MPV 10.9 fl (7.5-11.1) 05/31/18 08:00 Absolute Neuts (auto) 4.2 # 05/31/18 08:00 Neutrophils % 66.2 % (42.8-82.8) 05/31/18 08:00 Lymphocytes % 22.7 % (8-40) 05/31/18 08:00 Monocytes % 7.3 % (3.8-10.2) 05/31/18 08:00 Eosinophils % 2.5 % (0-4.5) 05/31/18 08:00 Basophils % 1.3 % (0-2.0) 05/31/18 08:00 Hypochromia 1+ 05/30/18 14:20 Microcytosis 1+ 05/30/18 14:20 Tear Drop Cells Occasional 05/30/18 14:20 Ovalocytes 1+ 05/30/18 14:20 CMP Sodium 139 mmol/L (136-145) 05/31/18 08:00 Potassium 4.2 mmol/L (3.5-5.1) 05/31/18 08:00 Chloride 103 mmol/L (98-107) 05/31/18 08:00 Carbon Dioxide 30 mmol/L (22-28) H 05/31/18 08:00 Anion Gap 6 (8-16) L 05/31/18 08:00 BUN 11 mg/dl (7-18) 05/31/18 08:00 Creatinine 0.8 mg/dl (0.6-1.3) 05/31/18 08:00 Creat Clearance w eGFR > 60 (>60) 05/31/18 08:00 Random Glucose 98 mg/dl (74-106) 05/31/18 08:00 Calcium 9.3 mg/dl (8.4-10.2) 05/31/18 08:00 Phosphorus 4.3 mg/dl (2.5-4.6) 05/31/18 08:00 Magnesium 2.0 mg/dL (1.8-2.4) 05/31/18 08:00 Total Bilirubin 0.7 mg/dl (0.2-1.0) 05/30/18 14:20 AST 20 U/L (10-42) 05/30/18 14:20 ALT 14 U/L (10-40) 05/30/18 14:20 Alkaline Phosphatase 83 U/L (32-92) 05/30/18 14:20 Creatine Kinase 83 IU/L (26-192) 05/30/18 14:20 Troponin I < 0.03 ng/ml (0.00-0.06) 05/30/18 14:20 Total Protein 7.1 g/dl (6.4-8.3) 05/30/18 14:20 Albumin 4.3 g/dl (3.5-5.0) 05/30/18 14:20 Triglycerides 23 mg/dl (35-160) L D 05/31/18 08:00 Cholesterol 157 mg/dl 05/31/18 08:00 Total LDL Cholesterol 93 mg/dL (5-100) 05/31/18 08:00 HDL Cholesterol 60 mg/dl (29-89) 05/31/18 08:00 imaging MRA of brain: No evidence of aneurysm, no evidence of basilar artery stenosis dissection or occlusion, as per radiologist Dr Whitfield MRI of brain: No evidence of acute infarction no evidence of acute intracerebral hemorrhage, subdural fluid collection or hydrocephalus, no evidence of demyelinating plaques,no acute infarction MRI cervical spine, no evidence of cervical cord enlargement or suspicious signal intensity of the cord, cervical arthrosis with straightening of the cervical lordosis C6-C7 herniation, no evidence of cord compression HOSPITAL COURSE: 1) Hypertensive urgency - patient was started on lisinopril 2.5 mg daily, blood pressure remained at goal - pending echocardiogram 2) Neuro R/o TIA - MRI/MRA of head and C-spine noted - patient was started on aspirin and Lipitor daily - discussed with neurologist 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 - Neurology Dr. London consulted and followed Date of Admission:05/30/18 Date of Discharge: 06/01/18 Minutes to complete discharge: 45 Discharge Summary Reason For Visit: TRANSIENT CEREBRAL ISCHEMIC ATTACK, UNSPECIFIED Current Active Problems Gait abnormality (Acute) Headache (Acute) TIA (transient ischemic attack) (Acute) Condition: Improved - Instructions Diet, Activity, Other Instructions: resume low sodium low cholesterol diet continue asa and lipitor as prescribed your blood pressure was noted to be elevated you were started on lisinopril or your blood pressure please take lisinopril as prescribed please follow up with a primary care physician within 2 weeks Please follow up with the neurologist within 2 weeks If any new or persistent symptoms develop please return to emergency department Referrals: Luis London DO [Staff Physician] - 2 Weeks Myrtle Carpenter MD [Staff Physician] - 2 Weeks Disposition: HOME - Home Medications Comprehensive Discharge Medication List: Ambulatory Orders NK [No Known Home Medication] 05/30/18 This patient is new to me today: Yes Date on this admission: 06/02/18 Emergency Visit: No Critical Care patient: No - Discharge Referral Referred to [facility] Med P.C.: No
--- NOTE | 2018-06-01 12:08 | ECHO ---
[place] [address] Name: NGOC JACKSON Exam:Adult Echocardiogram Referring Physician: Katya Psiano Age: 53 yrs Order#: CESAR Ordering Physician: Katya Pisano : 1965 Performed By: Ofe Atwood Study Date: 05/31/2018 01:56 PM Patient Status: Inpatient Reason For Study: R/O TIA Height: 65 in Weight: 104 lb BSA: 1.5 m2 MMode/2D Measurements & Calculations IVSd: 0.81 cm Ao root diam: 2.9 cm EDV(Teich): 64.7 ml LVOT diam: 1.9 cm LVIDd: 3.9 cm LA dimension: 2.0 cm ESV(Teich): 21.0 ml LVIDs: 2.4 cm LVPWd: 0.80 cm Doppler Measurements & Calculations MV E max latrice: 73.8 cm/sec TR max latrice: 237.0 cm/sec MV A max latrice: 55.8 cm/sec TR max P.5 mmHg MV E/A: 1.3 Procedure A two-dimensional transthoracic echocardiogram with color flow and Doppler was performed. Left Ventricle The left ventricular size, thickness and function are normal. Left ventricular systolic function is n ormal. Ejection Fraction = >70%. Right Ventricle The right ventricle is normal in size and function. The right ventricular systolic function is normal . Atria Normal left and right atrial size and function. Right atrial size is normal. Color flow doppler shows no evidence of a patent foramen ovale. Mitral Valve The mitral valve is normal. There is mild mitral regurgitation. Tricuspid Valve The tricuspid valve is normal. There is mild tricuspid regurgitation. Right ventricular systolic pres sure is normal. Aortic Valve The aortic valve is normal in structure and function. The aortic valve is trileaflet. No aortic regur gitation is present. Pulmonic Valve The pulmonic valve is not well visualized. The pulmonic valve is not well seen, but is grossly normal . Trace pulmonic valvular regurgitation. Great Vessels The aortic root is normal size. Pericardium/Pleura There is no pericardial effusion. Interpretation Summary The left ventricular size, thickness and function are normal The right ventricle is normal in size and function. There is mild mitral regurgitation. There is mild tricuspid regurgitation. Trace pulmonic valvular regurgitation. There is no pericardial effusion. Reading Physician: MD Luke Julian 06/01/2018 12:08 PM
[2018-06-01 12:37] VITALS: BP 130/74; PULSE 74; TEMP 98.6
== END 2018-06-01 14:50 | disposition home or self-care (01) ==
LOC: FER 13:45 → FM/S 16:11
PROVIDERS: ADMIT Internal Medicine; ATTEND Nurse Practitioner Family
DX: G45.9 Transient cerebral ischemic attack, unspecified (principal); I16.0 Hypertensive urgency; R51 Headache; R26.9 Unspecified abnormalities of gait and mobility; R47.1 Dysarthria and anarthria
CPT/HCPCS: 36415; 70450-TC; 70544-TC; 70551-TC; 72141-TC; 80048; 80053; 80061; 81003; 82465; 82550; 83718; 83721; 83735; 84100; 84478; 84484; 85025; 85610; 85730; 86850; 86900; 86901; 93005; 93306-TC; 97116-GP; 99284-25; G0378

== ENCOUNTER 2023-05-09 09:42 | Emergency (ER) | payer OTHER ==
[2023-05-09 09:49] VITALS: BP 128/71; PULSE 89; RESP 18; TEMP 98.7; BMI 20.1
[2023-05-09] MEDS ORDERED: ACETAMINOPHEN 325 MG TABLET (FP) PO ONE (10:13)
[2023-05-09] MEDS ORDERED: ACETAMINOPHEN 325 MG TABLET (FP) ONE (10:14)
== END 2023-05-09 11:35 | disposition home or self-care (01) ==
LOC: FER 09:42
PROC: 2W3LX1Z Immobilization of Right Lower Extremity using Splint (ICD-10-PCS; principal; 2023-05-09)
DX: S82.864A Nondisplaced Maisonneuve's fracture of right leg, initial encounter for closed fracture (principal); M79.671 Pain in right foot; M79.661 Pain in right lower leg; W01.0XXA Fall on same level from slipping, tripping and stumbling without subsequent striking against object, initial encounter; Y93.01 Activity, walking, marching and hiking; Y92.410 Unspecified street and highway as the place of occurrence of the external cause
CPT/HCPCS: 73590-TC-RT-FY; 73610-TC-RT-FY; 73630-TC-RT-FY; 99283-25